=== PATIENT | male | born 1965 | race Caucasian/White ===

== ENCOUNTER 2023-07-24 13:05 | Emergency (ER) | payer OTHER ==
[~2023-07-24] VITALS: Ht 188 cm; Wt 98.2 kg
[2023-07-24 14:47] LABS: BASO # 0.1 10^3/uL (0.0-0.2); BASO % 0.7 % (0.0-1.0); EOS # 0.2 10^3/uL (0.0-0.5); EOS % 2.5 % (0.0-3.0); HEMOGLOBIN 14.5 g/dl (13.5-17.5); LYMPH # 1.4 10^3/uL (1.5-5.0); LYMPH % 16.8 % (24.0-44.0); MEAN CORPUSCULAR HEMOGLOBIN 30.2 pg (27.0-33.0); MEAN CORPUSCULAR VOLUME 91.7 fl (80.0-96.0); MONO # 0.8 10^3/uL (0.0-0.8); MONO % 9.1 % (2.0-8.0); NEUTROPHILS # 5.9 10^3/uL (1.5-8.5); NEUTROPHILS % 70.5 % (36.0-66.0); PLATELET COUNT, AUTOMATED 143 10^3/uL (150-450); WHITE BLOOD COUNT 8.3 10^3/uL (4.0-10.0)
[2023-07-24 14:57] LABS: ERYTHROCYTE SEDIMENTATION RATE 60 mm/hr (0-20)
[2023-07-24 16:35] VITALS: BP 162/90; TEMP 97.8; O2SAT 97
== END 2023-07-24 16:37 | disposition home or self-care (01) ==
LOC: M ED 13:05
DX: M70.22 Olecranon bursitis, left elbow (principal); H61.23 Impacted cerumen, bilateral; I10 Essential (primary) hypertension; F10.10 Alcohol abuse, uncomplicated